=== PATIENT | female | born 1945 | race Caucasian/White ===

== ENCOUNTER 2017-12-07 11:06 | Inpatient (IN) | payer OTHER ==
[~2017-12-07] VITALS: Ht 157.5 cm; Wt 71.7 kg
[2017-12-07] MEDS ORDERED: ATORVASTATIN CA10 MG (11:21)
[2017-12-07] MEDS ORDERED: TOPROL XL25 M1 (11:21)
[2017-12-07] MEDS ORDERED: NOVOLIN 70100 UNIT/1 (11:22)
[2017-12-07] MEDS ORDERED: GLUCOPHAGE XR750 MG (11:22)
[2017-12-10] MEDS ORDERED: ASA-EC81 MG PO (14:35)
[2017-12-10] MEDS ORDERED: TOPROL XL25 M1 PO (14:35)
[2017-12-10] MEDS ORDERED: LIPITOR40 MG PO (14:35)
== END 2017-12-10 14:51 | disposition home or self-care (01) | DRG 311 ==
LOC: ER 11:06 → MEDJ 18:06 → SEC-K 18:06 → MEDI 12-08 00:10 → MEDJ 12-08 00:10
PROC: B246ZZZ Ultrasonography of Right and Left Heart (ICD-10-PCS; 2017-12-08)
PROC: 4A12X4Z Monitoring of Cardiac Electrical Activity, External Approach (ICD-10-PCS; 2017-12-08)
PROC: C23GYZZ Positron Emission Tomographic (PET) Imaging of Myocardium using Other Radionuclide (ICD-10-PCS; principal; 2017-12-09)
PROC: 4A12XM4 Monitoring of Cardiac Stress, External Approach (ICD-10-PCS; 2017-12-09)
PROC: 3E033HZ Introduction of Radioactive Substance into Peripheral Vein, Percutaneous Approach (ICD-10-PCS; 2017-12-09)
DX: I20.0 Unstable angina (principal); D68.2 Hereditary deficiency of other clotting factors; I10 Essential (primary) hypertension; E78.4 Other hyperlipidemia; E11.65 Type 2 diabetes mellitus with hyperglycemia

== ENCOUNTER 2022-06-01 10:36 | Outpatient (CLI) | payer OTHER ==
[~2022-06-01 10:36] MED LIST: ASA-EC81 MG PO; ATORVASTATIN CA10 MG; GLUCOPHAGE XR750 MG; LIPITOR40 MG PO; NOVOLIN 70100 UNIT/1; TOPROL XL25 M1; TOPROL XL25 M1 PO
== END 2022-06-01 10:44 | disposition home or self-care (01) ==
LOC: RAD 10:36
DX: M25.552 Pain in left hip (principal); M25.562 Pain in left knee

== ENCOUNTER 2022-07-14 09:17 | Outpatient (CLI) | payer OTHER | END 2022-07-14 09:18 | disposition home or self-care (01) | LOC: RAD 09:17 | DX: S82.141A Displaced bicondylar fracture of right tibia, initial encounter for closed fracture (principal) ==